=== PATIENT | male | born 1950 | race African-American/Black ===

== ENCOUNTER 2017-05-31 10:01 | Outpatient (CLI) | payer MEDICARE, OTHER | END 2017-05-31 10:03 | LOC: POD 10:01 | PROVIDERS: ATTEND Podiatrist Public Medicine | DX: L60.0 Ingrowing nail (principal); M79.674 Pain in right toe(s); M79.675 Pain in left toe(s); B35.1 Tinea unguium; E11.51 Type 2 diabetes mellitus with diabetic peripheral angiopathy without gangrene | CPT/HCPCS: 11721; G0463 ==

== ENCOUNTER 2017-09-13 08:24 | Outpatient (CLI) | payer MEDICARE, OTHER | END 2017-09-13 08:25 | LOC: POD 08:24 | PROVIDERS: ATTEND Podiatrist Public Medicine | DX: E11.51 Type 2 diabetes mellitus with diabetic peripheral angiopathy without gangrene (principal); B35.1 Tinea unguium; L60.0 Ingrowing nail; M79.674 Pain in right toe(s); M79.675 Pain in left toe(s) | CPT/HCPCS: 11721; G0463 ==